=== PATIENT | male | born 1965 | race Hispanic/Latino ===

== ENCOUNTER 2023-06-11 18:18 | Emergency (ER) | payer OTHER ==
[~2023-06-11] VITALS: Ht 170.2 cm; Wt 81.6 kg
[2023-06-11 18:35] VITALS: BP 212/125; PULSE 18; PULSE 95; RESP 18; TEMP 97.4; O2SAT 94
--- NOTE | 2023-06-11 19:13 | DIREP ---
PROCEDURE:XRAY HAND MIN 3 VW-LT COMPARISON:None. INDICATIONS:HAND SMASHED FINDINGS: BONES:Acute comminuted and mildly displaced fracture of the 4th proximal phalanx without intra-articular extension. No additional fracture is seen. JOINTS:Normal. SOFT TISSUES:Soft tissue swelling of the 4th digit. OTHER:No additional findings. CONCLUSION:Acute comminuted mildly displaced fracture of the 4th proximal phalanx. Dictated by: Gerardo Paz M.D. on 06/11/2023 at 07:10 PM
[2023-06-11 19:35] VITALS: BP 179/104; PULSE 84; RESP 18; O2SAT 95
[2023-06-11] MEDS ORDERED: MORPHINE SULFATE IM STA (19:46)
--- NOTE | 2023-06-11 19:49 | ER.PDOC ---
General Chief Complaint: Extremities Stated Complaint: LEFT HAND LAC Time seen by MD: 19:47 Source: patient Exam Limitations: no limitations History of Present Illness Initial Comments Laceration of left hand. The hand got caught between 2 metals Occurred: just prior to arrival Where: home Severity: moderate Context: direct blow, laceration Location of Injury: (L) hand Allergies: Coded Allergies: No Known Allergies (Unverified , 06/11/23) Past Medical History Medical History: no pertinent history Surgical History: no surgical history Family History Significant Family History: no pertinent family hx Social History Smoking: non-smoker Alcohol Use: none Drug Use: none Review of Systems Constitutional: no symptoms reported EENTM: no symptoms reported Respiratory: no symptoms reported Cardiovascular: no symptoms reported Gastrointestinal: no symptoms reported Musculoskeletal: see HPI All Other Systems: Reviewed and Negative Physical Exam General Appearance: Alert, No Apparent Distress Hand: tenderness (left hand) Wrist: nml inspection, non-tender, nml ROM 1 - Lac Neuro: sensation nml, motor nml Vascular: no vascular compromise Tendons: tendon function nml Forearm/Elbow/Arm: uninjured above wrist Skin: warm/dry Head/ENT: nml inspection, pharynx nml Neck/Back: nml inspection, non-tender Resp/CVS: no resp distress, lungs clear, heart sounds nml, reg. rate & rhythm Abdomen: non-tender, no organomegaly ED LACERATION WOUND REPAIR # of Wounds/Lacerations Presen: 1 Wound Location & Length (Requi: Left hand Wound Length (cm): 6 Wound cleaned: betadine Anesthesia type: local Anesthesia: 1% Lidocaine Volume Anesthetic (ccs): 10 Wound's Depth, Shape: irregular Irrigated w/ Saline (ccs): 100 Wound Repaired With: sutures Suture Size/Type: 4:0, ethilon Suture Style: interupted Number of Sutures: 10 Sterile Dressing Applied?: Yes Results/Orders Results/Orders Orders - BIA ZEE MD Xr Hand Lt (06/11/23 18:53) Morphine Sulfate (Morphine Sulfate) (06/11/23 19:46) Diph,Pertuss(Acell),Tet Vac/Pf (Boostrix (06/11/23 20:00) Cephalexin (Keflex) (06/11/23 19:50) Cephalexin (Keflex) (06/11/23 20:13) Neomycin/Bacitracin/Polymyxinb (Triple A (06/11/23 20:13) Morphine Sulfate (Morphine Sulfate) (06/11/23 20:13) Diph,Pertuss(Acell),Tet Vac/Pf (Boostrix (06/11/23 20:14) Morphine Sulfate (Morphine Sulfate) (06/11/23 20:18) Hydralazine Hcl (Apresoline) (06/11/23 20:18) Hydralazine Hcl (Apresoline) (06/11/23 20:27) Vital Signs Date Time Temp Pulse Resp B/P (MAP) Pulse Ox O2 Delivery O2 Flow Rate FiO2 06/11/23 20:31 82 205/125 06/11/23 18:35 97.4 95 18 94 06/11/23 18:35 97.4 18 18 212/125 (154) 94 Room Air* 0 21 06/11/23 18:35 97.4 95 18 Administered Medications Medications (Trade) Dose Ordered Sig/Duong Route PRN Reason Start Time Stop Time Status Last Admin Dose Admin Cephalexin (Keflex) 500 mg STAT STAT PO 06/11/23 19:50 06/11/23 19:51 DC 06/11/23 20:25 500 MG Diphtheria/ Tetanus/Acell Pertussis (Boostrix) 0.5 ml ONCE ONCE IM 06/11/23 20:00 06/11/23 20:01 DC 06/11/23 20:26 0.5 ML Hydralazine HCl (Apresoline) 10 mg STAT STAT IV 06/11/23 20:18 06/11/23 20:20 DC 06/11/23 20:31 10 MG Morphine Sulfate (Morphine Sulfate) 4 mg STAT STAT IV 06/11/23 20:18 06/11/23 20:20 DC 06/11/23 20:25 4 MG Progress Progress X rays left hand: :Acute comminuted mildly displaced fracture of the 4th proximal phalanx. Patient received morphine, Keflex and tetanus shot with improvement in his pain. Patient's blood pressure was high, patient does not see a doctor. He received hydralazine with significant improvement in his blood pressure. Overall he is feeling better to go home. I consulted Dr. Leiva and he told me that patient should follow-up with me in the office tomorrow at 9am. This was communicated to the patient who voices understanding. Left ring finger splinted. ER DEPART Departure Time of Disposition: 20:40 Disposition: 01 HOME / SELF CARE / HOMELESS Impression: Primary Impression: Fracture of phalanx of digit of hand Additional Impression: Laceration of left hand Condition: Improved Referrals: PCP,UNKNOWN (PCP) PRIMARY CARE PROVIDER Additional Instructions: Keflex Tramadol Follow-up with Dr. Leiva tomorrow at 9am Remove sutures in 8 days either PCP or ED Return to ED sooner if any concerns Duration or Time Spent with Pa: 20 min Problem Qualifiers Primary Impression: Fracture of phalanx of digit of hand Encounter type: initial encounter Fracture type: closed Qualified Codes: S62.609A - Fracture of unspecified phalanx of unspecified finger, initial encounter for closed fracture Additional Impression: Laceration of left hand Encounter type: initial encounter Foreign body presence: without foreign body Qualified Codes: S61.412A - Laceration without foreign body of left hand, initial encounter BIA ZEE MD Jun 11, 2023 19:49
[2023-06-11] MEDS ORDERED: KEFLEX PO STA (19:50)
[2023-06-11] MEDS ORDERED: BOOSTRIX IM ONE ×2 (20:00→20:14)
[2023-06-11] MEDS ORDERED: KEFLEX PO ONE (20:13)
[2023-06-11] MEDS ORDERED: MORPHINE SULFATE ONE (20:13)
[2023-06-11] MEDS ORDERED: TRIPLE ANTIBIOTIC OINTMENT PKT TP ONE (20:13)
[2023-06-11] MEDS ORDERED: APRESOLINE IV STA (20:18)
[2023-06-11] MEDS ORDERED: MORPHINE SULFATE IV STA (20:18)
[2023-06-11] MEDS ORDERED: APRESOLINE ONE (20:27)
[2023-06-11 20:35] VITALS: BP 202/125; PULSE 82; RESP 18; O2SAT 96
[2023-06-11 20:50] VITALS: BP 177/106; PULSE 82; RESP 18; O2SAT 95
--- NOTE | 2023-06-11 21:00 | NUR ---
SPLINT Finger splint applied to left ring finger and secured with coban. Band-aids changed to laceration/sutures due to seeping from lac.
== END 2023-06-11 21:00 | disposition home or self-care (01) ==
LOC: ER 18:18
DX: S61.412A Laceration without foreign body of left hand, initial encounter (principal); S62.609A Fracture of unspecified phalanx of unspecified finger, initial encounter for closed fracture; X58.XXXA Exposure to other specified factors, initial encounter; Y93.89 Activity, other specified; Y92.89 Other specified places as the place of occurrence of the external cause; Y99.8 Other external cause status
CPT/HCPCS: 99284; 96374; 96375; 90471; 12002; 90715; 73130; J0360